=== PATIENT | female | born 1990 | race Caucasian/White ===

== ENCOUNTER 2024-05-31 18:26 | Emergency (ER) | payer BC, SELFPAY ==
[2024-05-31 18:31] VITALS: BP 116/69; PULSE 74; RESP 18; TEMP 36.6; O2SAT 100; BMI 18.0
[2024-05-31 21:32] VITALS: BP 123/63; PULSE 70; RESP 16; O2SAT 98
--- NOTE | 2024-05-31 22:11 | ED_ITS ---
HPI - Head Injury General Chief complaint: Head Injury Stated complaint: Headache, Episodic Blurred Vision Time Seen by Provider: 05/31/24 22:10 History of Present Illness HPI Narrative: patient is a 33-year-old female without any significant past medical history presents to the ED for evaluation of headache, she states that on she opened a car door onto her face did have some mild nosebleed but no other issues however since then she has been having constant dull ache, also stating that she feels like she is having some intermittent blurry vision, but no actual loss of vision, she is not complaining of any other symptoms at this time. Is able to stand bear weight ambulate unassisted. Not on any blood thinners. She states that she did talk to medics and they instructed her to come into the ED for further evaluation treatment. Related Data Allergies Allergy/AdvReac Type Severity Reaction Status Date / Time acetaminophen Allergy Verified 05/31/24 18:31 Review of Systems Review of Systems Narrative: General: Denies fever, chills, weight loss HEENT: Denies headache, eye drainage, eye irritation, head trauma, sore throat, voice change Cardiovascular: Denies any chest pain, palpitations, shortness of breath, tachycardia Respiratory: Denies any shortness of breath, cough, wheeze, stridor GI/: Denies any abdominal pain, nausea, vomiting, diarrhea, bright red blood per rectum, melanotic stools, urinary frequency, urinary retention, dysuria, hematuria MSK: Denies any joint pain, muscle pains, swelling Skin: Denies any rashes, lesions, discoloration Neuro: positive headache, denies lightheadedness, dizziness, fainting, weakness Psych: Denies SI/HI Patient History Medical History (Updated 05/31/24 @ 22:15 by Kris Beckham DO) Screening for HPV (human papillomavirus) Cervical cancer screening Well woman exam with routine gynecological exam Social History marital status: unmarried,living together housing: house (Lives near /[facility]) 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[employer]) Smoking Status: Never smoker Smoking Status: Never smoker alcohol intake frequency: other Substance Use Type: does not use Exam Initial Vital Signs Initial Vital Signs: Vital Signs Temperature 97.9 F 05/31/24 18:31 Pulse Rate 74 05/31/24 18:31 Respiratory Rate 18 05/31/24 18:31 Blood Pressure 116/69 05/31/24 18:31 Pulse Oximetry 100 05/31/24 18:31 Oxygen Delivery Method Room Air 05/31/24 18:31 Course Vital Signs Vital signs: Vital Signs - 8 hr 05/31/24 18:31 05/31/24 21:32 Temperature 97.9 F Pulse Rate 74 70 Respiratory Rate 18 16 Blood Pressure 116/69 123/63 Pulse Oximetry 100 98 Oxygen Delivery Method Room Air Room Air MDM - Head Injury Differential Diagnosis Differential diagnosis: Likely other ( closed head injury, concussion) MDM Narrative Medical decision making narrative: patient is a 33-year-old female who presents to the ED for evaluation of headache and intermittent blurry vision she states that this happened after she hit her face with a car door, denies any loss of consciousness not on any blood thinners, she states that she did call medics and was instructed to come into the ED for further evaluation treatment. On exam she is neurovascularly intact, she is without any focal deficits, symptoms more likely consistent with migraine versus concussion. She was instructed to follow up with PCP and Neurology in outpatient setting, she will be safe for discharge home with outpatient follow up. Strict return precautions given verbalized understanding of this agrees to being discharged home with outpatient follow up. Discharge Plan Departure Patient Disposition: Home Clinical Impression: Closed head injury Activity Restrictions/Additional Instructions: please follow up with primary care and neurology Please read the discharge instructions sheet carefully and bring all papers to all doctor follow-up visits, as it may contain information that your doctor may want to see. Disease processes change and evolve, if your symptoms worsen or if you develop any new symptoms that are concerning to you please return for evaluation. Your evaluation today does not show any evidence of any life- threatening/serious illnesses requiring admission to the hospital or surgery. Please follow-up with your doctor for re-evaluation in approximately 1 day. Seek immediate medical attention for any worrisome symptoms. Referrals: Miscellaneous,Doctor, MD [Primary Care Provider] - Stand Alone Forms: Patient Portal/API/Survey
== END 2024-05-31 22:20 | disposition home or self-care (01) ==
PROVIDERS: Emergency Provider Student in an Organized Health Care Education/Training Program
DX: S09.90XA Unspecified injury of head, initial encounter (principal); H53.8 Other visual disturbances; W22.8XXA Striking against or struck by other objects, initial encounter
CPT/HCPCS: 99281; 99282